=== PATIENT | female | born 1960 | race African-American/Black ===

== ENCOUNTER 2019-12-21 19:22 | Inpatient (IN) | payer MEDICAID ==
[~2019-12-21] VITALS: Ht 152.4 cm; Wt 220.5 kg
[2019-12-21 19:23] VITALS: Ht 152.4 cm; Wt 220.5 kg
[2019-12-21 20:20] LABS: UA SPECIFIC GRAVITY 1.025 (1.005-1.035); microscopic required? YES; urine erythrocyte 3+ (NEGATIVE)
[2019-12-21 21:21] LABS: CALCIUM 9.9 mg/dL (8.5-10.1); CARBON DIOXIDE 25.8 mmol/L (21-32); CHLORIDE SERUM 102 mmol/L (98-107); GFR1 > 60 mL/min; GLUCOSE SERUM 130 mg/dL (74-106); POTASSIUM SERUM 3.6 mmol/L (3.5-5.1); SODIUM SERUM 137 mmol/L (136-145)
[2019-12-21 21:26] LABS: ALKALINE PHOSPHATASE 100 U/L (46-116); ALT/SGPT 28 U/L (14-59); AST/SGOT 38 U/L (15-37); BILIRUBIN TOTAL 1.55 mg/dL (0.20-1.00)
[2019-12-21 21:28] LABS: PLATELET COUNT 311 x10^3mcL (130-400); RED CELL DISTRIBUTION WIDTH 14.3 % (11.5-14.5); TOTAL PROTEIN, SERUM 7.4 g/dL (6.4-8.2)
[2019-12-21 21:34] LABS: ALBUMIN 1.9 g/dL (3.4-5.0)
[2019-12-21 21:42] LABS: BAND NEUTROPHIL 0 % (0-10); BASOPHIL 0 % (0-2); MONOCYTE 2 % (0-7); SEGMENTED NEUTROPHILS 91 % (37-75); rbc morphology (normal/abnorm) ABNORMAL (NORMAL)
[2019-12-22] VITALS (7 sets, daily range): BP systolic 113–144; BP diastolic 57–78
[2019-12-22 08:26] LABS: CALCIUM 9.3 mg/dL (8.5-10.1); CARBON DIOXIDE 21.9 mmol/L (21-32); CHLORIDE SERUM 104 mmol/L (98-107); CREATININE SERUM 0.9 mg/dL (0.6-1.0); GFR1 > 60 mL/min; GLUCOSE SERUM 116 mg/dL (74-106); POTASSIUM SERUM 4.1 mmol/L (3.5-5.1); SODIUM SERUM 140 mmol/L (136-145)
[2019-12-22 10:27] LABS: PLATELET COUNT 312 x10^3mcL (130-400)
[2019-12-22 10:33] LABS: RED CELL DISTRIBUTION WIDTH 14.7 % (11.5-14.5)
[2019-12-22 11:57] LABS: BAND NEUTROPHIL 46 % (0-10); BASOPHIL 0 % (0-2); METAMYELOCTE 2 % (0-2); MONOCYTE 3 % (0-7); SEGMENTED NEUTROPHILS 43 % (37-75); rbc morphology (normal/abnorm) ABNORMAL (NORMAL)
[2019-12-22 11:58] LABS: PLATELET MORPHOLOGY GIANT PLATELET SEEN; tear drop cell (dacryocyte) 1+
[2019-12-23 06:41] VITALS: BP 103/62
[2019-12-23 06:53] LABS: CALCIUM 9.8 mg/dL (8.5-10.1); CARBON DIOXIDE 29.1 mmol/L (21-32); CHLORIDE SERUM 102 mmol/L (98-107); CREATININE SERUM 0.8 mg/dL (0.6-1.0); GFR1 > 60 mL/min; GLUCOSE SERUM 110 mg/dL (74-106); POTASSIUM SERUM 4.3 mmol/L (3.5-5.1); SODIUM SERUM 136 mmol/L (136-145)
[2019-12-23 07:40] LABS: PLATELET COUNT 321 x10^3mcL (130-400)
[2019-12-23 08:08] LABS: RED CELL DISTRIBUTION WIDTH 15.1 % (11.5-14.5)
[2019-12-23 08:28] VITALS: BP 128/61
[2019-12-23 12:39] VITALS: BP 129/67
[2019-12-23 14:19] LABS: SEGMENTED NEUTROPHILS 53 % (37-75)
[2019-12-23 14:20] LABS: BAND NEUTROPHIL 38 % (0-10); METAMYELOCTE 1 % (0-2); MONOCYTE 1 % (0-7); MYELOCYTE 1 % (0-2)
[2019-12-23 14:21] LABS: PLATELET MORPHOLOGY PLATELETS NORMAL; rbc morphology (normal/abnorm) NORMAL (NORMAL)
[2019-12-23 17:16] VITALS: BP 112/54
[2019-12-23 21:00] VITALS: BP 124/61
[2019-12-24 05:40] VITALS: BP 118/60
[2019-12-24 06:41] LABS: CALCIUM 9.9 mg/dL (8.5-10.1); CARBON DIOXIDE 29.5 mmol/L (21-32); CHLORIDE SERUM 103 mmol/L (98-107); CREATININE SERUM 0.6 mg/dL (0.6-1.0); GFR1 > 60 mL/min; GLUCOSE SERUM 167 mg/dL (74-106); POTASSIUM SERUM 4.3 mmol/L (3.5-5.1); SODIUM SERUM 138 mmol/L (136-145)
[2019-12-24 07:07] LABS: PLATELET COUNT 312 x10^3mcL (130-400)
[2019-12-24 07:23] LABS: RED CELL DISTRIBUTION WIDTH 15.2 % (11.5-14.5)
[2019-12-24 09:07] LABS: BAND NEUTROPHIL 24 % (0-10); METAMYELOCTE 1 % (0-2); MONOCYTE 2 % (0-7); MYELOCYTE 1 % (0-2); SEGMENTED NEUTROPHILS 60 % (37-75)
[2019-12-24 09:08] LABS: rbc morphology (normal/abnorm) ABNORMAL (NORMAL)
[2019-12-24 09:24] VITALS: BP 120/65
[2019-12-24 11:42] VITALS: BP 138/75
[2019-12-24 15:30] VITALS: BP 128/71
[2019-12-24 20:00] VITALS: BP 150/80
[2019-12-25 05:38] VITALS: BP 144/76
[2019-12-25 07:10] LABS: CALCIUM 9.6 mg/dL (8.5-10.1); CARBON DIOXIDE 30.8 mmol/L (21-32); CHLORIDE SERUM 103 mmol/L (98-107); CREATININE SERUM 0.5 mg/dL (0.6-1.0); GFR1 > 60 mL/min; GLUCOSE SERUM 191 mg/dL (74-106); POTASSIUM SERUM 5.1 mmol/L (3.5-5.1); SODIUM SERUM 140 mmol/L (136-145)
[2019-12-25 08:33] LABS: PLATELET COUNT 362 x10^3mcL (130-400)
[2019-12-25 08:40] LABS: RED CELL DISTRIBUTION WIDTH 15.7 % (11.5-14.5)
[2019-12-25 09:10] VITALS: BP 149/79
[2019-12-25 11:58] LABS: BAND NEUTROPHIL 25 % (0-10); BASOPHIL 0 % (0-2); METAMYELOCTE 2 % (0-2); MONOCYTE 2 % (0-7); MYELOCYTE 1 % (0-2); SEGMENTED NEUTROPHILS 65 % (37-75)
[2019-12-25 11:59] LABS: rbc morphology (normal/abnorm) NORMAL (NORMAL)
[2019-12-25 12:00] LABS: PLATELET MORPHOLOGY GIANT PLATELET SEEN
[2019-12-25 12:07] VITALS: BP 137/76
[2019-12-25 16:26] VITALS: BP 131/70
[2019-12-25 20:57] VITALS: BP 149/97
[2019-12-26 05:12] VITALS: BP 134/67
[2019-12-26 08:25] VITALS: BP 127/59
[2019-12-26 12:59] LABS: CALCIUM 9.8 mg/dL (8.5-10.1); CHLORIDE SERUM 101 mmol/L (98-107); CREATININE SERUM 0.6 mg/dL (0.6-1.0); GFR1 > 60 mL/min; SODIUM SERUM 137 mmol/L (136-145)
[2019-12-26 13:04] VITALS: BP 131/66
[2019-12-26 13:39] LABS: PLATELET COUNT 408 x10^3mcL (130-400); RED CELL DISTRIBUTION WIDTH 15.4 % (11.5-14.5)
[2019-12-26 13:56] LABS: BAND NEUTROPHIL 47 % (0-10); BASOPHIL 0 % (0-2); MONOCYTE 4 % (0-7); SEGMENTED NEUTROPHILS 37 % (37-75)
[2019-12-26 13:57] LABS: PLATELET MORPHOLOGY PLATELETS INCREASED; rbc morphology (normal/abnorm) ABNORMAL (NORMAL)
[2019-12-26 14:00] LABS: CARBON DIOXIDE 32.5 mmol/L (21-32); POTASSIUM SERUM 5.1 mmol/L (3.5-5.1)
[2019-12-26 14:09] LABS: GLUCOSE SERUM 230 mg/dL (74-106)
[2019-12-26 17:07] VITALS: BP 139/70
[2019-12-26 21:13] VITALS: BP 114/58
[2019-12-27 06:33] VITALS: BP 120/53
[2019-12-27 06:53] LABS: CALCIUM 9.4 mg/dL (8.5-10.1); CARBON DIOXIDE 34.8 mmol/L (21-32); CHLORIDE SERUM 100 mmol/L (98-107); CREATININE SERUM 0.6 mg/dL (0.6-1.0); GFR1 > 60 mL/min; GLUCOSE SERUM 174 mg/dL (74-106); SODIUM SERUM 138 mmol/L (136-145)
[2019-12-27 07:53] LABS: PLATELET COUNT 425 x10^3mcL (130-400); RED CELL DISTRIBUTION WIDTH 15.2 % (11.5-14.5)
[2019-12-27 08:25] VITALS: BP 122/57
[2019-12-27 10:55] LABS: BAND NEUTROPHIL 20 % (0-10); BASOPHIL 0 % (0-2); MONOCYTE 14 % (0-7); SEGMENTED NEUTROPHILS 51 % (37-75)
[2019-12-27 10:58] LABS: rbc morphology (normal/abnorm) ABNORMAL (NORMAL)
[2019-12-27 11:55] VITALS: BP 122/57
[2019-12-27 12:25] VITALS: BP 131/56
[2019-12-27 17:01] VITALS: BP 123/57
[2019-12-27 19:50] VITALS: BP 133/56
[2019-12-28 04:18] VITALS: BP 115/60
[2019-12-28 07:58] LABS: PLATELET COUNT 470 x10^3mcL (130-400); RED CELL DISTRIBUTION WIDTH 14.8 % (11.5-14.5)
[2019-12-28 08:11] VITALS: BP 128/62
[2019-12-28 08:49] LABS: CALCIUM 9.3 mg/dL (8.5-10.1); CARBON DIOXIDE 31.2 mmol/L (21-32); CHLORIDE SERUM 100 mmol/L (98-107); CREATININE SERUM 0.5 mg/dL (0.6-1.0); GFR1 > 60 mL/min; GLUCOSE SERUM 138 mg/dL (74-106); POTASSIUM SERUM 4.7 mmol/L (3.5-5.1); SODIUM SERUM 136 mmol/L (136-145)
[2019-12-28 11:58] VITALS: BP 136/55
[2019-12-28 13:29] LABS: ATYPICAL LYMPH 3 %; BAND NEUTROPHIL 21 % (0-10); MONOCYTE 3 % (0-7); SEGMENTED NEUTROPHILS 62 % (37-75)
[2019-12-28 13:30] LABS: METAMYELOCTE 4 % (0-2); MYELOCYTE 3 % (0-2)
[2019-12-28 13:32] LABS: rbc morphology (normal/abnorm) ABNORMAL (NORMAL)
[2019-12-28 13:34] LABS: PLATELET MORPHOLOGY PLATELETS INCREASED
[2019-12-28 16:51] VITALS: BP 138/69
[2019-12-28 20:34] VITALS: BP 121/63
[2019-12-29 05:59] VITALS: BP 122/55
[2019-12-29 07:53] LABS: CALCIUM 9.5 mg/dL (8.5-10.1); CARBON DIOXIDE 34.1 mmol/L (21-32); CHLORIDE SERUM 100 mmol/L (98-107); CREATININE SERUM 0.5 mg/dL (0.6-1.0); GFR1 > 60 mL/min; GLUCOSE SERUM 128 mg/dL (74-106); POTASSIUM SERUM 4.5 mmol/L (3.5-5.1); SODIUM SERUM 136 mmol/L (136-145)
[2019-12-29 07:55] LABS: PLATELET COUNT 432 x10^3mcL (130-400); RED CELL DISTRIBUTION WIDTH 15.4 % (11.5-14.5)
[2019-12-29 08:28] LABS: BAND NEUTROPHIL 2 % (0-10); BASOPHIL 0 % (0-2); MONOCYTE 8 % (0-7); SEGMENTED NEUTROPHILS 85 % (37-75)
[2019-12-29 08:29] LABS: PLATELET MORPHOLOGY PLATELETS INCREASED
[2019-12-29 08:30] LABS: rbc morphology (normal/abnorm) ABNORMAL (NORMAL)
[2019-12-29 09:18] VITALS: BP 110/56
[2019-12-29 12:49] VITALS: BP 113/51
[2019-12-29 17:46] VITALS: BP 117/55
[2019-12-29 21:40] VITALS: BP 118/59
[2019-12-30 05:30] VITALS: BP 104/57
[2019-12-30 08:16] LABS: PLATELET COUNT 438 x10^3mcL (130-400); RED CELL DISTRIBUTION WIDTH 15.3 % (11.5-14.5)
[2019-12-30 09:31] LABS: CALCIUM 9.4 mg/dL (8.5-10.1); CARBON DIOXIDE 33.9 mmol/L (21-32); CHLORIDE SERUM 100 mmol/L (98-107); CREATININE SERUM 0.5 mg/dL (0.6-1.0); GFR1 > 60 mL/min; GLUCOSE SERUM 131 mg/dL (74-106); POTASSIUM SERUM 4.5 mmol/L (3.5-5.1); SODIUM SERUM 136 mmol/L (136-145)
[2019-12-30 10:00] VITALS: BP 120/47
[2019-12-30 12:09] LABS: BAND NEUTROPHIL 2 % (0-10); BASOPHIL 0 % (0-2); MONOCYTE 4 % (0-7); SEGMENTED NEUTROPHILS 89 % (37-75)
[2019-12-30 12:10] LABS: PLATELET MORPHOLOGY PLATELETS INCREASED; rbc morphology (normal/abnorm) ABNORMAL (NORMAL)
[2019-12-30 14:34] VITALS: BP 122/50
[2019-12-30 17:36] VITALS: BP 126/53
[2019-12-30 21:14] VITALS: BP 131/50
[2019-12-31 05:17] VITALS: BP 127/59
[2019-12-31 07:25] LABS: CALCIUM 9.5 mg/dL (8.5-10.1); CARBON DIOXIDE 34.1 mmol/L (21-32); CHLORIDE SERUM 101 mmol/L (98-107); CREATININE SERUM 0.5 mg/dL (0.6-1.0); GFR1 > 60 mL/min; GLUCOSE SERUM 105 mg/dL (74-106); POTASSIUM SERUM 4.4 mmol/L (3.5-5.1); SODIUM SERUM 137 mmol/L (136-145)
[2019-12-31 07:44] VITALS: BP 107/45
[2019-12-31 08:22] LABS: PLATELET COUNT 470 x10^3mcL (130-400); RED CELL DISTRIBUTION WIDTH 15.5 % (11.5-14.5)
[2019-12-31 09:52] LABS: BAND NEUTROPHIL 0 % (0-10); BASOPHIL 0 % (0-2); MONOCYTE 5 % (0-7); SEGMENTED NEUTROPHILS 80 % (37-75)
[2019-12-31 09:53] LABS: PLATELET MORPHOLOGY PLATELETS INCREASED
[2019-12-31 11:33] LABS: rbc morphology (normal/abnorm) ABNORMAL (NORMAL)
[2019-12-31 13:37] VITALS: BP 107/45
[2019-12-31 14:00] VITALS: BP 117/53
[2019-12-31 17:27] VITALS: BP 116/58
[2019-12-31 20:30] VITALS: BP 118/57
[2020-01-01 05:36] VITALS: BP 119/55
[2020-01-01 07:06] LABS: CALCIUM 9.4 mg/dL (8.5-10.1); CARBON DIOXIDE 35.4 mmol/L (21-32); CHLORIDE SERUM 103 mmol/L (98-107); CREATININE SERUM 0.4 mg/dL (0.6-1.0); GFR1 > 60 mL/min; GLUCOSE SERUM 112 mg/dL (74-106); POTASSIUM SERUM 4.5 mmol/L (3.5-5.1); SODIUM SERUM 140 mmol/L (136-145)
[2020-01-01 08:10] LABS: PLATELET COUNT 401 x10^3mcL (130-400); RED CELL DISTRIBUTION WIDTH 16.3 % (11.5-14.5)
[2020-01-01 08:57] VITALS: BP 108/51
[2020-01-01 09:06] LABS: ATYPICAL LYMPH 1 %; BAND NEUTROPHIL 1 % (0-10); BASOPHIL 0 % (0-2); MONOCYTE 8 % (0-7); SEGMENTED NEUTROPHILS 68 % (37-75)
[2020-01-01 09:07] LABS: PLATELET MORPHOLOGY PLATELETS INCREASED
[2020-01-01 09:08] LABS: rbc morphology (normal/abnorm) ABNORMAL (NORMAL)
[2020-01-01 11:46] VITALS: BP 122/51
[2020-01-01 12:17] LABS: FREE T4 1.11 ng/dL (0.76-1.46)
[2020-01-01 13:17] LABS: IRON 33 ug/dL (50-170); TOTAL IRON BINDING CAPACITY 194 ug/dL (250-450)
[2020-01-01 17:18] VITALS: BP 121/48
[2020-01-01 20:53] VITALS: BP 105/54
[2020-01-02 05:53] VITALS: BP 114/90
[2020-01-02 07:44] LABS: CALCIUM 9.7 mg/dL (8.5-10.1); CARBON DIOXIDE 32.3 mmol/L (21-32); CHLORIDE SERUM 103 mmol/L (98-107); CREATININE SERUM 0.4 mg/dL (0.6-1.0); GFR1 > 60 mL/min; GLUCOSE SERUM 95 mg/dL (74-106); POTASSIUM SERUM 4.9 mmol/L (3.5-5.1); SODIUM SERUM 139 mmol/L (136-145)
[2020-01-02 08:53] LABS: RED CELL DISTRIBUTION WIDTH 15.6 % (11.5-14.5)
[2020-01-02 09:27] VITALS: BP 138/62
[2020-01-02 12:58] LABS: ATYPICAL LYMPH 1 %; BAND NEUTROPHIL 0 % (0-10); BASOPHIL 0 % (0-2); MONOCYTE 4 % (0-7); PLATELET MORPHOLOGY PLATELETS INCREASED; SEGMENTED NEUTROPHILS 92 % (37-75)
[2020-01-02 12:59] LABS: rbc morphology (normal/abnorm) ABNORMAL (NORMAL)
[2020-01-02 13:25] VITALS: BP 119/61
[2020-01-02 13:39] LABS: PLATELET COUNT 495 x10^3mcL (130-400)
[2020-01-02 16:36] VITALS: BP 135/66
[2020-01-02 20:55] VITALS: BP 100/53
[2020-01-03 05:32] VITALS: BP 121/52
[2020-01-03 06:28] LABS: BASOPHIL % 0.2 % (0-2)
[2020-01-03 06:36] LABS: PLATELET COUNT 444 x10^3mcL (130-400); RED CELL DISTRIBUTION WIDTH 15.8 % (11.5-14.5)
[2020-01-03 06:55] LABS: CALCIUM 9.6 mg/dL (8.5-10.1); CHLORIDE SERUM 101 mmol/L (98-107); CREATININE SERUM 0.5 mg/dL (0.6-1.0); GFR1 > 60 mL/min; GLUCOSE SERUM 107 mg/dL (74-106); POTASSIUM SERUM 4.2 mmol/L (3.5-5.1); SODIUM SERUM 138 mmol/L (136-145)
[2020-01-03 13:00] VITALS: BP 117/50
[2020-01-03 17:45] VITALS: BP 128/55
[2020-01-03 21:05] VITALS: BP 112/58
[2020-01-04 05:30] VITALS: BP 113/50
[2020-01-04 08:42] VITALS: BP 113/52
[2020-01-04 12:26] VITALS: BP 120/55
[2020-01-04 16:32] VITALS: BP 153/59
[2020-01-04 17:01] VITALS: BP 113/62
[2020-01-04 17:34] LABS: ALBUMIN 1.6 g/dL (3.4-5.0); BILIRUBIN DIRECT 0.11 mg/dL (0.0-0.2); BILIRUBIN TOTAL 0.23 mg/dL (0.20-1.00); TOTAL PROTEIN, SERUM 6.5 g/dL (6.4-8.2)
[2020-01-04 21:56] VITALS: BP 127/55
[2020-01-05 05:11] VITALS: BP 126/53
[2020-01-05 07:11] LABS: BASOPHIL % 0.7 % (0-2)
[2020-01-05 07:32] LABS: CALCIUM 9.6 mg/dL (8.5-10.1); CARBON DIOXIDE 32.5 mmol/L (21-32); CHLORIDE SERUM 101 mmol/L (98-107); CREATININE SERUM 0.5 mg/dL (0.6-1.0); GFR1 > 60 mL/min; GLUCOSE SERUM 108 mg/dL (74-106); POTASSIUM SERUM 4.1 mmol/L (3.5-5.1); SODIUM SERUM 138 mmol/L (136-145)
[2020-01-05 07:34] LABS: RED CELL DISTRIBUTION WIDTH 15.3 % (11.5-14.5)
[2020-01-05 07:35] LABS: PLATELET COUNT 452 x10^3mcL (130-400)
[2020-01-05 08:26] VITALS: BP 120/54
[2020-01-05 11:06] VITALS: BP 117/60
[2020-01-05 16:31] VITALS: BP 117/60
== END 2020-01-05 18:36 | DRG 720 ==
LOC: EDBD 19:22 → ED 19:22 → DU 22:49
PROVIDERS: Emergency Medicine; Internal Medicine Gastroenterology; ADMIT Internal Medicine
PROC: 30233N1 Transfusion of Nonautologous Red Blood Cells into Peripheral Vein, Percutaneous Approach (ICD-10-PCS; principal; 2019-12-31)
PROC: 0DB68ZX Excision of Stomach, Via Natural or Artificial Opening Endoscopic, Diagnostic (ICD-10-PCS; 2020-01-02 08:00)
DX: A40.8 Other streptococcal sepsis (principal); J96.21 Acute and chronic respiratory failure with hypoxia; I27.81 Cor pulmonale (chronic); A04.72 Enterocolitis due to Clostridium difficile, not specified as recurrent; E66.01 Morbid (severe) obesity due to excess calories; K26.9 Duodenal ulcer, unspecified as acute or chronic, without hemorrhage or perforation; Z68.45 Body mass index [BMI] 70 or greater, adult; L03.116 Cellulitis of left lower limb; D50.0 Iron deficiency anemia secondary to blood loss (chronic); I10 Essential (primary) hypertension; I73.9 Peripheral vascular disease, unspecified; Z74.01 Bed confinement status; Z03.818 Encounter for observation for suspected exposure to other biological agents ruled out
CPT/HCPCS: 36600; 43235; 83880; 84439; 87804; 97110-GP; 97530-GP; C1751; C9113; G0378; J0696; J1200; J1610; J1642; J1644; J1940; J1956; J2250; J2270; J2310; J2540; J2543; J2920; J3010; J3490; J3535; J7030; J7050; J7060; J7613; P9016; Q0092; Q0163; U0002